=== PATIENT | female | born 1995 | race Caucasian/White ===

== ENCOUNTER 2019-08-31 10:28 | Emergency (ER) | payer OTHER, MEDICAID, SELFPAY ==
[2019-08-31 10:37] VITALS: BP 122/80; PULSE 71; RESP 16; TEMP 36.4; O2SAT 100; BMI 22.6
--- NOTE | 2019-08-31 10:56 | ED.URI ---
HPI - URI/Sore Throat General Chief Complaint: Upper Respiratory Symptoms Stated Complaint: Swollen throat, hard time swallowing and breathing Time Seen by Provider: 08/31/19 10:42 Source: patient Mode of arrival: Ambulatory Limitations: no limitations History of Present Illness HPI Narrative: 23-year-old female here for evaluation of right sided posterior throat pain. Patient states that it started approximately 2 weeks ago. Does not know the specific incident however around that time she was eating salmon and she thought that maybe there was a piece of bone stuck in her throat. She also works at a [employer] and was moving boards around without a respirator so this could be related to that. No fevers. States that it does hurt when she swallows. She also had some dental work done at that time. Related Data Previous Rx's Medication Instructions Recorded sucralfate [Carafate] 10 ml PO QID #420 ml 08/31/19 Allergies Allergy/AdvReac Type Severity Reaction Status Date / Time epinephrine [EPINEPHRINE] Allergy Severe Anaphylaxis Unverified 08/31/19 10:37 Review of Systems Constitutional Constitutional: Denies fever(s) ENT Ears, Nose, Mouth, and Throat: Denies dental pain, Denies vertigo, Denies dizziness, Denies neck pain, Denies nose pain, Reports sore throat and Denies throat swelling Cardiovascular Cardiovascular: Denies chest pain and Denies dyspnea Respiratory Respiratory: Denies dyspnea Gastrointestinal Gastrointestinal: Denies abdominal pain, Denies nausea and Denies vomiting Musculoskeletal Musculoskeletal: Denies neck pain Integumentary/Breasts Skin/Breast: Denies rash Neurologic Neurologic: Denies vertigo and Denies dizziness Allergic/Immunologic Allergic/Immunologic: Denies throat swelling Patient History Medical History Patient denies medical problems (Acute) Social History Smoking Status: Current every day smoker Substance Use Type: does not use Exam Initial Vital Signs Initial Vital Signs: Vital Signs Temperature 97.6 F 08/31/19 10:37 Pulse Rate 71 08/31/19 10:37 Respiratory Rate 16 08/31/19 10:37 Blood Pressure 122/80 08/31/19 10:37 Pulse Oximetry 100 08/31/19 10:37 Const General: cooperative and comfortable Orientation: alert and awake HENWV Head: normal to inspection and normocephalic Ears: TM's normal bilaterally Face and sinus: normal facial exam Mouth: oral mucosae normal Teeth and gingiva: dentition normal Throat: posterior oropharynx normal Neck Lymphatic: No lymphadenopathy Resp Effort & Inspection: normal respiratory effort Auscultation: clear to auscultation bilaterally Cardio Rate: regular rate Rhythm: regular rhythm Skin Lesions: no lesions Rashes: no rashes Neuro General: alert and awake Cognition: normal cognition Extrem General: capillary refill normal Course Vital Signs Vital signs: Vital Signs - 8 hr 08/31/19 10:37 Temperature 97.6 F Pulse Rate 71 Respiratory Rate 16 Blood Pressure 122/80 Pulse Oximetry 100 MDM - URI/Sore Throat MDM Narrative Medical decision making narrative: Patient has a normal exam in the ER. I did use a dental mere and was able to see to her epiglottis. I see no foreign bodies. I have low suspicion for infectious etiology. Symptoms been going on for 2 weeks. No respiratory distress. Has been able to eat mashed potatoes and rice pudding. Patient does not have a primary provider. I do not feel that patient needs to be seen emergently by ENT or General surgery for an endoscopy. They were given phone numbers for these to follow up with. She was given return precautions. Will send home with Carafate to see if this does not soon the area and cut the area to improve her symptoms. Patient expressed understanding and agreement plan. Discharge Plan Departure Patient Disposition: Home Clinical Impression: Sore throat Activity Restrictions/Additional Instructions: Take the medications as directed. You do not have any restrictions on your diet. I recommend that you contact the health special education resource room teacher here at the hospital at [phone] to help you establish a primary provider. You can also contact the [facility]NT group at [phone]. Return to the emergency department for any new symptoms. Prescriptions: New sucralfate [Carafate] 100 mg/mL suspension 10 ml PO QID Qty: 420 RF: 0
== END 2019-08-31 11:12 | disposition home or self-care (01) ==
PROVIDERS: Emergency Provider Emergency Medicine
DX: J02.9 Acute pharyngitis, unspecified (principal)
CPT/HCPCS: 99282